=== PATIENT | male | born 1995 | race Caucasian/White ===

== ENCOUNTER 2021-10-13 12:12 | Emergency (ER) | payer OTHER ==
[~2021-10-13] VITALS: Ht 177.8 cm; Wt 97.7 kg
[2021-10-13] MEDS ORDERED: CRUTCHES MC (15:25)
[2021-10-13 15:30] VITALS: BP 126/64; PULSE 62; TEMP 97.8
== END 2021-10-13 15:44 | disposition home or self-care (01) ==
LOC: COL.ER 12:12
DX: S90.32XA Contusion of left foot, initial encounter (principal); W55.22XA Struck by cow, initial encounter